=== PATIENT | female | born 1945 | race African-American/Black ===

== ENCOUNTER 2021-12-18 15:27 | Emergency (ER) | payer OTHER ==
[~2021-12-18 15:27] MED LIST: ALLOPURINOL 30300 MG PO; DITROPAN5 MG PO; GLUCOTROL10 MG PO; JANUVIA100 MG PO; MICRO-K10 MEQ PO; PEPCID AC20 MG PO; PLAVIX75 M1 PO; PRAVACHOL80 MG PO; PRINIVIL10 MG PO; SERTRALINE HCL100 MG PO; TIZANIDINE HCL4 MG PO; VITAMIN D5000 UNIT PO
[2021-12-18] MEDS ORDERED: MEDROL 4MG DOSEP4 MG PO (18:24)
[2021-12-18] MEDS ORDERED: NORCO 5-325 TA1 EACH PO (18:24)
== END 2021-12-18 21:15 | disposition home or self-care (01) ==
LOC: FER 15:27
DX: S43.421A Sprain of right rotator cuff capsule, initial encounter (principal); M54.41 Lumbago with sciatica, right side; I10 Essential (primary) hypertension; E11.9 Type 2 diabetes mellitus without complications; Z88.6 Allergy status to analgesic agent; Z88.8 Allergy status to other drugs, medicaments and biological substances; W19.XXXA Unspecified fall, initial encounter; Y92.009 Unspecified place in unspecified non-institutional (private) residence as the place of occurrence of the external cause
CPT/HCPCS: 73030